=== PATIENT | female | born 1990 | race Hispanic/Latino ===

== ENCOUNTER 2022-08-03 01:13 | Emergency (ER) | payer BC ==
[~2022-08-03] VITALS: Ht 154.9 cm; Wt 95.3 kg
[2022-08-03] MEDS ORDERED: NAPROSYN500 MG PO (01:55)
[2022-08-03] MEDS ORDERED: CYCLOBENZAPRINE5 MG PO (01:55)
[2022-08-03 02:23] LABS: CLARITY,URINE CLOUDY (CLEAR); COLOR,URINE YELLOW (YELLOW); KETONES,URINE NEGATIVE (NEGATIVE); LEUKOCYTE ESTERASE ,URINE 1+ (NEGATIVE); NITRITE,URINE NEGATIVE (NEGATIVE); PROTEIN,URINE DIPSTICK NEGATIVE (NEGATIVE); URINE UROBILINOGEN 0.2 mg/dL (0.2 - 1)
[2022-08-03] MEDS ORDERED: ORPHENADRINE CITRATE 30 MG/ML VIAL IM ONE (02:30)
[2022-08-03] MEDS ORDERED: KETOROLAC TROMETHAMINE 60 MG/2 ML VIAL IM ONE (02:30)
[2022-08-03 02:31] LABS: BACTERIA,URINE MANY /HPF; EPITHELIAL CELLS,URINE MANY /LPF; WBC,URINE (MAN) >50 /HPF (0-5)
[2022-08-03] MEDS ORDERED: CEFDINIR300 MG PO (02:42)
[2022-08-03] MEDS ORDERED: KETOROLAC TROMETHAMINE 60 MG/2 ML VIAL ONE (02:43)
== END 2022-08-03 02:51 | disposition home or self-care (01) ==
LOC: ER 01:50
DX: M54.32 Sciatica, left side (principal); N39.0 Urinary tract infection, site not specified
CPT/HCPCS: 81001; 81025; 99283; J1885; J2360